=== PATIENT | male | born 1995 | race Hispanic/Latino ===

== ENCOUNTER 2021-05-30 17:54 | Inpatient (IN) | payer OTHER, SELFPAY ==
[~2021-05-30 17:54] MED LIST: Iopamidol-370 76% 500 ML 1 ML ONE; Rocuronium Bromide 10 MG/ML (10ML VIAL) ONE
[2021-05-30] MEDS ORDERED: Fentanyl 100 MCG/2 ML VIAL ONE ×2 (18:00→19:22)
[2021-05-30] MEDS ORDERED: Lidocaine 1% w/Epinephrine 1:100K 20 ML VIAL ONE (18:02)
[2021-05-30 18:05] LABS: Hemoglobin 16.4 g/dL (14.0-18.0); Mean Corpuscular HGB CONC 32.9 g/dL (32.0-36.0); Mean Corpuscular Volume 85.1 fL (78.0-98.0); Mean Platelet Volume 8.8 fL (7.4-10.4); Platelet Count 250 thou/uL (130-400); RBC Distribution Width 11.8 % (11.5-14.5); Red Blood Cell (RBC) Count 5.84 mill/uL (4.70-6.10); White Blood Cell (WBC) Count 26.6 thou/uL (4.8-10.8)
[2021-05-30 18:17] LABS: PTT 28.1 sec (22.9-36.1); Prothrombin Time 13.5 sec (12.0-14.7)
[2021-05-30] MEDS ORDERED: Ketamine 50 MG/ML (10ML VIAL) ONE ×2 (18:19→18:54)
[2021-05-30 18:21] LABS: Band 24 % (5-11); Lymphocytes 11 % (21-51); MDiff Complete? YES; Monocytes 5 % (0-10); Neutrophil 46 % (42-75); Platelet Morphology Comment Appears Adequate; Polychromasia SLIGHT = 2-3 cells (100X) (0-2/hpf); Reactive Lymphocytes 14 % (0-10); Tear Drops SLIGHT = 2-5 cells (100X) (0-1/hpf)
[2021-05-30 18:24] LABS: ALT (SGPT) 399 U/L (8-55); AST (SGOT) 357 U/L (5-34); Albumin 4.1 g/dL (3.5-5.0); Alkaline Phosphatase 91 U/L (40-110); Anion Gap 19 mmol/L (10-20); BUN (Urea Nitrogen) 18 mg/dL (8.9-20.6); Bilirubin, Total 0.7 mg/dL (0.2-1.2); Calc. Creatinine Clearance 0 mL/min (70-130); Calcium 8.5 mg/dL (7.8-10.44); Carbon Dioxide 17 mmol/L (22-29); Chloride 107 mmol/L (98-107); Globulin 3.6 g/dL (2.4-3.5); Glucose 143 mg/dL (70-105); Protein, Total 7.7 g/dL (6.0-8.3); Sodium 139 mmol/L (136-145)
[2021-05-30] MEDS ORDERED: Morphine 2 MG/ML VIAL SLOW IVP PRN (18:54)
[2021-05-30] MEDS ORDERED: Dextrose 5% in Water 1,000 ML IV PRN (18:54)
[2021-05-30] MEDS ORDERED: Morphine 4 MG/ML VIAL SLOW IVP PRN (18:54)
[2021-05-30] MEDS ORDERED: Lidocaine 1% (PF) 30 ML VIAL ONE ×2 (18:54→19:19)
[2021-05-30] MEDS ORDERED: Ondansetron PF 4 MG/2 ML Vial IVP PRN (18:54)
[2021-05-30] MEDS ORDERED: Dextrose 50% Abboject 50 ML SYRINGE SLOW IVP PRN (18:54)
[2021-05-30] MEDS ORDERED: Rib Fracture Protocol IV SCH (19:00)
[2021-05-30] MEDS ORDERED: Rocuronium Bromide 10 MG/ML (10ML VIAL) IVP SCH (20:00)
[2021-05-30] MEDS: Sodium Chloride 0.9% 1,000 ML IV SCH (20:00)
[2021-05-30] MEDS ORDERED: Fentanyl CADD 100 ML ONE (20:06)
[2021-05-30 20:49] LABS: Actual Bicarbonate (HCO3a) 18.6 mEq/L (22-28); Base Excess (BEa) -11.4 mEq/L (-2.0 to +3.0); CO2 Tension 58.1 mmHg (35.0-45.0); Calcium, Ionized (arterial) 1.15 mmol/L (1.12-1.30); Carboxyhemoglobin (COHb) 0.4 gm% (0.0-3.0); Hemoglobin (Hb) 15.8 g/dL (14.0-18.0); O2 Tension (PaO2), arterial 79.7 mmHg (80.0-100.0); Potassium - ABG Lab 3.59 mmol/L (3.70-5.30)
[2021-05-30 20:56] LABS: ALV-art Gradient 560.675 mmHg (0-20); Puncture Site LBA; pH, Arterial 7.12 (7.35-7.45)
[2021-05-30] MEDS ORDERED: Fentanyl BOLUS 250 ML IVPB PRN (21:15)
[2021-05-30] MEDS ORDERED: DISCONTINUE PREVIOUS NARCOTIC PAIN MEDICATIONS AND BENZODIAZEPINES FS SCH (21:15)
[2021-05-30] MEDS ORDERED: Propofol BOLUS 1,000 MG/100 ML VIAL IV PRN (21:15)
[2021-05-30 21:22] LABS: Lactic Acid 3.5 mmol/L (0.5-2.2)
[2021-05-30 21:36] LABS: Actual Bicarbonate (HCO3a) 18.4 mEq/L (22-28); Base Excess (BEa) -9.8 mEq/L (-2.0 to +3.0); CO2 Tension 48.6 mmHg (35.0-45.0); Calcium, Ionized (arterial) 1.13 mmol/L (1.12-1.30); Carboxyhemoglobin (COHb) 0.3 gm% (0.0-3.0); Hemoglobin (Hb) 15.5 g/dL (14.0-18.0); Potassium - ABG Lab 3.63 mmol/L (3.70-5.30)
[2021-05-30 21:39] LABS: Puncture Site LBA
[2021-05-30] MEDS: Famotidine/PF 20 mg/2ml Vial SLOW IVP SCH (21:40)
[2021-05-30 22:30] LABS: SARS-CoV-2 NAA Rapid Test DETECTED (NotDetected)
[2021-05-30] MEDS: Propofol 1,000 MG/100 ML VIAL IV PRN (23:09)
[2021-05-30] MEDS: Acetaminophen 650 MG Suppository PR SCH (23:10)
[2021-05-30] MEDS: Lorazepam 2 MG/ML VIAL SLOW IVP PRN (23:13)
[2021-05-30] MEDS ORDERED: Albuterol 200 PUFF (6.7GM INHALER) INH PRN (23:27)
[2021-05-30] MEDS: Albuterol 200 PUFF (6.7GM INHALER) INH SCH (23:50)
[2021-05-30] MEDS ORDERED: Ketorolac Tromethamine 30 MG/ML VIAL IVP SCH (23:59)
[2021-05-31] MEDS: Sodium Chloride 0.9% 1,000 ML IV SCH ×5 (00:20→20:22)
[2021-05-31 04:04] LABS: Anion Gap 18 mmol/L (10-20); BUN (Urea Nitrogen) 20 mg/dL (8.9-20.6); Calc. Creatinine Clearance 177 mL/min (70-130); Calcium 7.4 mg/dL (7.8-10.44); Carbon Dioxide 14 mmol/L (22-29); Chloride 115 mmol/L (98-107); Glucose 144 mg/dL (70-105); Lactic Acid 5.4 mmol/L (0.5-2.2); Potassium 4.9 mmol/L (3.5-5.1); Sodium 142 mmol/L (136-145)
[2021-05-31 04:53] LABS: Band 38 % (5-11); Hemoglobin 14.5 g/dL (14.0-18.0); Lymphocytes 10 % (21-51); MDiff Complete? YES; Mean Corpuscular HGB CONC 33.9 g/dL (32.0-36.0); Mean Corpuscular Hemoglobin 28.6 pg (27.0-31.0); Mean Corpuscular Volume 84.3 fL (78.0-98.0); Mean Platelet Volume 8.3 fL (7.4-10.4); Monocytes 3 % (0-10); Neutrophil 49 % (42-75); Platelet Count 217 thou/uL (130-400); RBC Distribution Width 12.2 % (11.5-14.5); Red Blood Cell (RBC) Count 5.06 mill/uL (4.70-6.10); White Blood Cell (WBC) Count 19.6 thou/uL (4.8-10.8)
[2021-05-31] MEDS: Acetaminophen 650 MG Suppository PR SCH ×4 (05:08→23:19)
[2021-05-31] MEDS ORDERED: Fentanyl CADD 100 ML ONE ×3 (06:21→23:14)
[2021-05-31] MEDS: Fentanyl CADD 100 ML IV SCH ×3 (06:24→23:19)
[2021-05-31] MEDS ORDERED: Sodium Chloride 0.9% 1,000 ML IV SCH (07:00)
[2021-05-31] MEDS: Lorazepam 2 MG/ML VIAL SLOW IVP PRN (07:17)
[2021-05-31] MEDS: Propofol 1,000 MG/100 ML VIAL IV PRN ×3 (07:18→23:18)
[2021-05-31] MEDS: Albuterol 200 PUFF (6.7GM INHALER) INH SCH (07:43)
[2021-05-31] MEDS: Morphine 2 MG/ML VIAL SLOW IVP PRN ×2 (08:00→12:00)
[2021-05-31 08:13] LABS: Actual Bicarbonate (HCO3a) 18.4 mEq/L (22-28); Base Excess (BEa) -6.9 mEq/L (-2.0 to +3.0); CO2 Tension 36.6 mmHg (35.0-45.0); Calcium, Ionized (arterial) 0.99 mmol/L (1.12-1.30); Carboxyhemoglobin (COHb) 0.4 gm% (0.0-3.0); Hemoglobin (Hb) 12.8 g/dL (14.0-18.0); Potassium - ABG Lab 4.36 mmol/L (3.70-5.30); pH, Arterial 7.32 (7.35-7.45)
[2021-05-31 08:14] LABS: Puncture Site RRA
[2021-05-31] MEDS ORDERED: Lidocaine 1% (PF) 30 ML VIAL ONE (08:27)
[2021-05-31] MEDS: Albuterol Sulfate 1.25 MG/3 ML NEB NEB SCH ×3 (08:30→23:15)
[2021-05-31] MEDS ORDERED: Piperacillin/Tazobactam 3.375 GM in Sodium Chloride 0.9% 100 ML IVPB SCH ×2 (08:30→16:00)
[2021-05-31] MEDS: Famotidine/PF 20 mg/2ml Vial SLOW IVP SCH ×2 (08:32→20:27)
[2021-05-31] MEDS ORDERED: Lidocaine 1% (PF) 30 ML VIAL SC SCH (09:45)
[2021-05-31] MEDS ORDERED: Vecuronium 10 MG VIAL ONE ×2 (11:45→11:58)
[2021-05-31] MEDS ORDERED: PROPOFOL 200 MG/20 ML VIAL ONE (11:45)
[2021-05-31] MEDS: Piperacillin/Tazobactam 3.375 GM in Sodium Chloride 0.9% 100 ML IVPB SCH ×2 (11:54→20:22)
[2021-05-31] MEDS ORDERED: Vecuronium 10 MG VIAL IVP SCH (12:15)
[2021-05-31] MEDS ORDERED: Calcium Chloride 1 GM/10 ML Abboject SYRINGE IVP SCH (14:30)
[2021-05-31] MEDS ORDERED: Dexamethasone 4 mg/ml Vial SLOW IVP SCH (14:45)
[2021-05-31] MEDS ORDERED: Lorazepam 2 MG/ML VIAL SLOW IVP PRN (15:41)
[2021-05-31] MEDS ORDERED: Lorazepam 2 MG/ML VIAL ONE (15:42)
[2021-05-31] MEDS: Colchicine 0.6 MG TAB PO SCH (20:25)
[2021-05-31] MEDS: Dexamethasone 4 mg/ml Vial SLOW IVP SCH (20:28)
[2021-05-31 23:18] VITALS: BP 104/61
[2021-06-01] MEDS: Piperacillin/Tazobactam 3.375 GM in Sodium Chloride 0.9% 100 ML IVPB SCH (04:02)
[2021-06-01] MEDS: Sodium Chloride 0.9% 1,000 ML IV SCH (04:03)
[2021-06-01 04:57] VITALS: TEMP 99.3
[2021-06-01] MEDS: Acetaminophen 650 MG Suppository PR SCH (05:43)
[2021-06-01 06:29] LABS: #Lymphocytes 1.3 thou/uL (1.20-3.40); #Monocytes 0.4 thou/uL (0.11-0.59); #Neutrophils 10.4 thou/uL (1.40-6.50); %Lymphocytes 10.4 % (21.0-51.0); %Monocytes 3.6 % (0.0-10.0); %Neutrophils 85.9 % (42.0-75.0); Hemoglobin 11.4 g/dL (14.0-18.0); Mean Corpuscular HGB CONC 33.3 g/dL (32.0-36.0); Mean Corpuscular Hemoglobin 28.7 pg (27.0-31.0); Mean Corpuscular Volume 86.3 fL (78.0-98.0); Mean Platelet Volume 8.3 fL (7.4-10.4); Platelet Count 200 thou/uL (130-400); RBC Distribution Width 12.4 % (11.5-14.5); Red Blood Cell (RBC) Count 3.97 mill/uL (4.70-6.10); White Blood Cell (WBC) Count 12.1 thou/uL (4.8-10.8)
[2021-06-01 06:50] LABS: Anion Gap 12 mmol/L (10-20); BUN (Urea Nitrogen) 18 mg/dL (8.9-20.6); Calc. Creatinine Clearance 212 mL/min (70-130); Calcium 8.8 mg/dL (7.8-10.44); Carbon Dioxide 22 mmol/L (22-29); Chloride 113 mmol/L (98-107); Glucose 155 mg/dL (70-105); Magnesium 1.7 mg/dL (1.6-2.6); Phosphorus 2.1 mg/dL (2.3-4.7); Potassium 5.3 mmol/L (3.5-5.1); Sodium 142 mmol/L (136-145)
[2021-06-01] MEDS: Albuterol Sulfate 1.25 MG/3 ML NEB NEB SCH (06:50)
[2021-06-01] MEDS ORDERED: Magnesium Sulfate 3 GM in Sodium Chloride 0.9% 100 ML IV SCH (07:15)
[2021-06-01] MEDS: Colchicine 0.6 MG TAB PO SCH (08:08)
[2021-06-01] MEDS: Dexamethasone 4 mg/ml Vial SLOW IVP SCH (08:08)
[2021-06-01] MEDS: Famotidine/PF 20 mg/2ml Vial SLOW IVP SCH (08:09)
[2021-06-01] MEDS ORDERED: Furosemide 40 MG/4 ML VIAL ONE (08:55)
[2021-06-01 09:13] VITALS: BMI 35.3
[2021-06-01] MEDS ORDERED: Fentanyl 100 MCG/2 ML VIAL ONE (09:36)
[2021-06-01] MEDS ORDERED: Fentanyl CADD 100 ML ONE (09:37)
[2021-06-01] MEDS: Fentanyl CADD 100 ML IV SCH (09:39)
[2021-06-01] MEDS: Propofol 1,000 MG/100 ML VIAL IV PRN (09:55)
[2021-06-01] MEDS: Lorazepam 2 MG/ML VIAL SLOW IVP PRN (10:00)
== END 2021-06-01 10:50 | disposition short-term general hospital (02) | DRG 963 ==
LOC: ERS 17:54 → CCU 18:54
PROVIDERS: ADMIT Surgery; ATTEND Surgery
PROC: 0W9B30Z Drainage of Left Pleural Cavity with Drainage Device, Percutaneous Approach (ICD-10-PCS; principal; 2021-05-30)
PROC: 0W9930Z Drainage of Right Pleural Cavity with Drainage Device, Percutaneous Approach (ICD-10-PCS; 2021-05-30)
PROC: 0BJ08ZZ Inspection of Tracheobronchial Tree, Via Natural or Artificial Opening Endoscopic (ICD-10-PCS; 2021-05-30)
PROC: 5A1945Z Respiratory Ventilation, 24-96 Consecutive Hours (ICD-10-PCS; 2021-05-30)
PROC: 0BH18EZ Insertion of Endotracheal Airway into Trachea, Via Natural or Artificial Opening Endoscopic (ICD-10-PCS; 2021-05-30)
PROC: 30233N1 Transfusion of Nonautologous Red Blood Cells into Peripheral Vein, Percutaneous Approach (ICD-10-PCS; 2021-05-30)
PROC: 0DJ08ZZ Inspection of Upper Intestinal Tract, Via Natural or Artificial Opening Endoscopic (ICD-10-PCS; 2021-05-31)
PROC: 0W9930Z Drainage of Right Pleural Cavity with Drainage Device, Percutaneous Approach (ICD-10-PCS; 2021-05-31)
DX: S22.31XA Fracture of one rib, right side, initial encounter for closed fracture (principal); J93.0 Spontaneous tension pneumothorax; S27.4 Injury of bronchus; S36.113A Laceration of liver, unspecified degree, initial encounter; U07.1 COVID-19; J96.00 Acute respiratory failure, unspecified whether with hypoxia or hypercapnia; J12.82 Pneumonia due to coronavirus disease 2019; T79.7XXA Traumatic subcutaneous emphysema, initial encounter; S27.322A Contusion of lung, bilateral, initial encounter; W51.XXXA Accidental striking against or bumped into by another person, initial encounter; R40.2412 Glasgow coma scale score 13-15, at arrival to emergency department; E83.51 Hypocalcemia; V89.2XXA Person injured in unspecified motor-vehicle accident, traffic, initial encounter; Y92.411 Interstate highway as the place of occurrence of the external cause
CPT/HCPCS: 31624; 36415; 36416; 36430; 36600; 70450; 71045; 71260; 72125; 74177; 80048; 80053; 82533; 82805; 83605; 83735; 84100; 85025; 85610; 85730; 86850; 86900; 86901; 87040; 87077; 87086; 87186; 93005; 94002; 94003; 94640; G0390; J1100; J1885; J1940; J2001; J2060; J2270; J2543; J2704; J3010; J3475; J3490; J7050; P9016; Q9967; S0028; U0002; U0005

== ENCOUNTER 2021-06-28 11:19 | Outpatient (CLI) | payer OTHER | END 2021-06-28 11:20 | disposition home or self-care (01) | LOC: BICRAD 11:19 | PROVIDERS: ATTEND Surgery | DX: V89.2XXA Person injured in unspecified motor-vehicle accident, traffic, initial encounter (principal); R91.8 Other nonspecific abnormal finding of lung field | CPT/HCPCS: 71046 ==

== ENCOUNTER 2021-07-20 13:03 | Outpatient (CLI) | payer OTHER ==
[~2021-07-20 13:03] MED LIST changes: +Iopamidol 370 76% 100 ML VIAL ONE; -Iopamidol-370 76% 500 ML 1 ML ONE; -Rocuronium Bromide 10 MG/ML (10ML VIAL) ONE
== END 2021-07-20 13:04 | disposition home or self-care (01) ==
LOC: BICCT 13:03
PROVIDERS: ATTEND Surgery
DX: V89.2XXA Person injured in unspecified motor-vehicle accident, traffic, initial encounter (principal); S20.211A Contusion of right front wall of thorax, initial encounter; S30.1XXA Contusion of abdominal wall, initial encounter; S39.011A Strain of muscle, fascia and tendon of abdomen, initial encounter; K63.89 Other specified diseases of intestine; K76.89 Other specified diseases of liver; S36.113A Laceration of liver, unspecified degree, initial encounter; T79.7XXA Traumatic subcutaneous emphysema, initial encounter; J93.9 Pneumothorax, unspecified; J98.4 Other disorders of lung; S22.43XD Multiple fractures of ribs, bilateral, subsequent encounter for fracture with routine healing; Z98.890 Other specified postprocedural states
CPT/HCPCS: 71260; 74177; Q9967